=== PATIENT | male | born 1960 | race Caucasian/White ===

== ENCOUNTER → 2021-01-05 | Outpatient (CLI) | payer BC ==
--- NOTE | 2021-01-05 11:30 | XR ---
EXAMINATION TYPE: XR chest 2V DATE OF EXAM: 01/05/2021 COMPARISON: NONE HISTORY: History of tobacco use. TECHNIQUE: Frontal and lateral views of the chest are obtained. FINDINGS: There is no focal air space opacity, pleural effusion, or pneumothorax seen. The cardiac silhouette size is within normal limits. The osseous structures are intact. IMPRESSION: No acute process.
--- NOTE | 2021-01-05 11:38 | XR ---
EXAMINATION TYPE: XR Hip Bilateral and AP pelvis DATE OF EXAM: 01/05/2021 COMPARISON: NONE HISTORY: Pelvic and bilateral hip pain TECHNIQUE: A single AP view of the pelvis is obtained. Two views of the bilateral hips are obtained. FINDINGS: There is no acute fracture/dislocation evident in the pelvis. There is some asymmetric santiago rowing of the right sacroiliac joint. [id number] symmetric axial joint space loss in both hips. Symmetric mild acetabular spurring bilaterally. Pubic symphysis is intact. Two views of bilateral hips show no acute fracture or dislocation. No focal lytic or sclerotic lesio n seen in the proximal femurs bilaterally. The overlying soft tissue is unremarkable bilaterally. IMPRESSION: As above.
--- NOTE | 2021-01-05 11:42 | XR ---
EXAMINATION TYPE: XR lumbosacral spine min 4V DATE OF EXAM: 01/05/2021 CLINICAL HISTORY: Chronic pain. TECHNIQUE: Frontal, lateral, and oblique images of the lumbar spine are obtained. COMPARISON: None FINDINGS: There are 5 lumbar type vertebral bodies identified. There is grade 1 anterolisthesis L4 o n L5. Mild disc space narrowing L2-L3 level. Mild disc space narrowing with vacuum disc phenomenon L5 -S1 level. Mild to moderate multilevel anterior and lateral spurring. Oblique images appear within no rmal limits. Moderate vascular truncation overlying abdominal aorta. No acute fracture or dislocation is seen. IMPRESSION: As above.
== END | disposition home or self-care (01) ==
LOC: RADXRMAIN 10:45
PROVIDERS: ATTEND Nurse Practitioner
DX: M51.36 Other intervertebral disc degeneration, lumbar region (principal); M25.851 Other specified joint disorders, right hip; M25.852 Other specified joint disorders, left hip; Z87.891 Personal history of nicotine dependence
CPT/HCPCS: 71046; 72110; 73521